=== PATIENT | male | born 1945 | race Caucasian/White ===

== ENCOUNTER 2022-03-13 11:25 | Day surgery (SDC) | payer MEDICARE, OTHER, SELFPAY ==
[2022-03-06 14:58] VITALS: BMI 29.8
[2022-03-13 12:43] VITALS: BP 127/100; PULSE 88; RESP 16; TEMP 36.3; O2SAT 99; BMI 28.1
[2022-03-13 12:43] LABS: COVID19 -Nasal RAPID Negative (Negative)
[2022-03-13 12:48] VITALS: BMI 28.1
[2022-03-13] MEDS: LACTATED RINGERS 1,000 ML 120 ML IV (12:49)
--- NOTE | 2022-03-13 13:49 | PM.HP.1 ---
History of Present Illness History of Present Illness Date Patient Seen: 03/13/22 Time Patient Seen: 13:30 Chief complaint: Lt Wrist Carpal Fusion Narrative: 76-year-old gentleman with end-stage arthritic changes to the left wrist resulting in pain dysfunction and loss of motion. Patient History Medical History Bilateral wrist pain Dislocation, hip GERD (gastroesophageal reflux disease) History of revision of total replacement of right hip joint HLD (hyperlipidemia) Hx of fracture of femur Osteoarthritis Rheumatic fever Surgical History History of arthroplasty of right shoulder (09/10/15) History of orthopedic surgery (08/23/15) History of total left hip arthroplasty (2006) History of total left hip arthroplasty History of total right hip arthroplasty (09/11/14) Hx of right inguinal hernia repair Hx of tonsillectomy Family & Social History Social History: household members spouse Tobacco & Substance use: Smoking Status Never smoker alcohol intake never alcohol intake frequency holiday/special occasion Substance Use Type does not use Meds Home Medications and Allergies Home Medications Medication Instructions Recorded Confirmed Type diphenhydramine 25 2 tab PO BEDTIME PRN Sleep 03/06/22 03/06/22 History mg-acetaminophen 500 mg tablet (Acetaminophen PM) ibuprofen 200 mg tablet 200 mg PO Q6H PRN Pain 03/06/22 03/06/22 History tamsulosin 0.4 mg capsule (Flomax) 0.4 mg PO DAILY 03/13/22 03/13/22 History Allergies Allergy/AdvReac Type Severity Reaction Status Date / Time niacin [NIACIN] Allergy Intermediate hives Verified 03/13/22 12:10 Penicillins [PENICILLINS] Allergy Intermediate hives Verified 03/13/22 12:10 Exam Vital Signs (past 8 hours): - 03/13/22 12:43 Temperature 97.3 F L Pulse Rate 88 Respiratory Rate 16 Blood Pressure 127/100 H Pulse Oximetry 99 Oxygen Delivery Method Room Air Oxygen Delivery Method Room Air Narrative Exam Narrative: Limited range of motion to the left radiocarpal joint. Pain with range of motion. Difficulty to go beyond 45? of both flexion and extension. Crepitus coming from the radiocarpal joint. Arthritic changes to the fingers as well. Ulnar, median, and radial nerve intact both motor and sensory function. Difficulty making a tight fist. 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 Patient has been unresponsive to conservative treatment and is interested in proceeding with a 5 limited carpal fusion. The risk, benefits, alternatives, possible complications, operative course, and postop outcomes were discussed. Complications including but not limiting to bleeding, infection, fracture, nerve injury, continued pain postoperatively or instability postoperatively were discussed in detail. Medical complications including but not limited to deep venous thrombosis event, anesthesia complications with excessive bleeding, vascular events or cardiac events and other possible complications were discussed in detail. Need for postoperative rehabilitation and anticipated hospital stay and clinical course were discussed in detail. Patient acknowledges understanding and elects to proceed with surgery. Time Spent With Patient Critical Care time: I spent a total of [] minutes of critical care time on this patient's care today; this time is exclusive of procedural time.
--- NOTE | 2022-03-13 13:52 | PM.PREOP ---
Pre-operative Note Interval Note History & Physical reviewed/Exam performed by Physician: Yes Changes to H&P: No
--- NOTE | 2022-03-13 14:17 | SUR.PREOP ---
Block start time [1432] . Monitoring initiated and maintained throughout procedure. Oxygen and medications given by anesthesiologist instructions. Patient remained stable throughout procedure, no adverse reactions noted. Block end time [1445].
[2022-03-13] MEDS: CEFAZOLIN 2 GM/100 ML PREMIX 100 ML IV (14:50)
--- NOTE | 2022-03-13 15:16 | SUR.OPER ---
Supine on padded OR bed, head on pillow, right arm secured on padded arm boards at <90 degrees abduction, left arm draped free on black arm table, legs uncrossed, safety belt at thigh, tape over blanket over lower legs.
--- NOTE | 2022-03-13 16:28 | PM.OP.1 ---
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 Patient had end-stage arthritic changes between the scaphoid and the scaphoid fossa. Bony erosion and deformity. Signs of carpal collapse as well as a DISI deformity. No sign of any significant arthritic changes between the lunate and the radius. Closure Type: primary Applied: implant(s) (TriMed 4 corner fusion plate) Estimated Blood Loss (mL): 0 Tourniquet time (min): 71 Procedure in detail: On date of service, patient was met in the holding area where his operative site was signed and witnessed by the OR staff. The surgery is once again discussed with the patient in remaining questions or concerns he had were answered fully. Patient was taken back to the operating theater and placed on the operating table in a supine position. Great care was taken to ensure that all bony prominences were appropriately padded. A well-padded tourniquet was placed up along the upper extremity. Time-out was performed verifying patient's name, procedure, and operative site. The limb was prepped and draped in the normal sterile fashion. An Esmarch was used to exsanguinate the limb the tourniquet was turned up to 250 mm of mercury. Longitudinal incision was made. The incision was ulnar to the Marifer's tubercle. It was centered over the radiocarpal joint. Fifteen blade was used to incise through skin and fascial tissue. Sharp dissection was continued with a 15 blade until the extensor mechanism was identified. Branches of the superficial radial nerve were identified and protected as well as branches coming off ulnarly. Once we had the extensor mechanism identified and was split allowing a release of the EPL tendon. This was also done ulnarly opening up 4th extensor compartment and then done radially opening up the 2nd extensor compartment. This allowed us to retract the extensor tendons. Next, the radiocarpal joint was opened Given his good visualization of the carpus. Findings listed above. Using an osteotome, scaphoid was split and then removed into 2 large pieces. The interval between the lunate in the triquetrum was opened as well as the interval between the capitate and the hamate. The lunate was reduced in a more anatomic position and pinned to the radius. Next a bur was then used to remove any remaining cartilage or sclerotic bone getting down to good healthy bleeding bone. This was done for the articulation between the lunate and the capitate as well as the triquetrum and the hamate. This was also done between the hamate and the capitate as well as between the lunate and the triquetrum. Copious irrigation was performed throughout burring. Once we felt we had good exposed bony tissue, the 4 bones were pinned together for provisional fixation of our 4 corner fusion. Next a Reamer was then used to ream out a circular space for the plate. This provided us good bony graft after the reaming. This was saved for later use. The 18 mm plate was placed and held provisionally with K-wires. Reduction of the 4 carpal bones as well as plate placement was identified on C-arm. Once we were satisfied with the overall reduction and position of the plate, the holes were drilled and locking screws were placed. All the holes were used providing at least 2 screws in to each of the 4 bones. Final K-wire was removed and the wrist was taken through range of motion. No sign of any motion between the 4 bones. Signs of good solid fixation of the 4 corner fusion. Next, the area was copiously irrigated before placing of the bone graft. the previous bone graft was then packed into the different intervals as well as on top of the plate. The dorsal capsule was repaired back into place using 2 0 Ethibond. The extensor retinaculum was then repaired with 3-0 Vicryl recreating the 2nd 3rd 4th and 5th compartments. The skin was then closed with nylon. The hand was cleaned, dried, and dressed. Final C-arm views were obtained. Patient was placed into a splint and taken to the PACU in stable condition. Complications: none Post-operative Condition: stable Disposition: PACU Plan for aftercare: Patient be immobilized for a total of 6 weeks.
[2022-03-13 16:37] VITALS: BP 147/77; PULSE 46; RESP 16; O2SAT 98
[2022-03-13 16:45] VITALS: BP 136/72; BP 147/77; PULSE 46; RESP 12; RESP 16; TEMP 36.2; TEMP 36.3; O2SAT 98
[2022-03-13 16:58] VITALS: BP 134/70; PULSE 46; RESP 16; O2SAT 98
--- NOTE | 2022-03-13 17:43 | SUR.PHASEII ---
Pt has sling in place to support LUE that is weight. Pt voided prior to discharge. No pain. given instructions for DC over the phone.
== END 2022-03-13 17:40 | disposition home or self-care (01) ==
PROVIDERS: PCP Social Worker Clinical; Referring Provider Orthopaedic Surgery; Visit Provider Orthopaedic Surgery
PROC: (CPT 25825; principal; 2022-03-13 13:45)
DX: M19.132 Post-traumatic osteoarthritis, left wrist (principal); K21.9 Gastro-esophageal reflux disease without esophagitis; I10 Essential (primary) hypertension; Z20.822 Contact with and (suspected) exposure to COVID-19
CPT/HCPCS: 25825; 64450; 87635; J0690; J2250; J3010